=== PATIENT | male | born 1990 | race African-American/Black ===

== ENCOUNTER 2018-12-03 10:50 | Emergency (ER) | payer MEDICAID ==
[~2018-12-03] VITALS: Ht 188 cm; Wt 88.5 kg
[2018-12-03 12:15] VITALS: BP 133/84
== END 2018-12-03 12:31 | disposition home or self-care (01) ==
LOC: ER 11:22
DX: K59.00 Constipation, unspecified (principal); F31.9 Bipolar disorder, unspecified; F20.9 Schizophrenia, unspecified
CPT/HCPCS: 74018; 99283

== ENCOUNTER 2021-01-27 10:54 | Inpatient (IN) | payer MEDICAID, OTHER ==
[~2021-01-27] VITALS: Ht 180.3 cm; Wt 91.2 kg
[2021-01-27 11:48] LABS: BASOPHILS % 0.4 % (0.0-2.0); HEMATOCRIT. 42.3 % (42.0-52.0); HEMOGLOBIN. 13.8 g/dL (14.0-18.0); LYMPHOCYTES % 28.8 % (20.0-50.0); MEAN CORPUSCULAR HEMOGLOBIN 34.9 pg (28.0-32.0); MEAN CORPUSCULAR VOLUME 107.1 fL (80.0-94.0); MEAN PLATELET VOLUME 9.7 fl (7.4-10.4); MONOCYTES % 14.3 % (2.0-8.0); NEUTROPHILS % 53.5 % (40.0-76.0); PLATELET 86 x1000/uL (130-400); RED BLOOD CELL COUNT 3.95 mill/uL (4.7-6.1); RED CELL DISTRIBUTION WIDTH 13.2 % (11.6-14.6)
[2021-01-27 11:54] LABS: CHLORIDE 111 mEq/L (98-107)
[2021-01-27 12:33] LABS: INR 1.1; PROTHROMBIN TIME 11.4 sec (9.6-11.0)
[2021-01-27] MEDS ORDERED: DIPHENHYDRAMINE 50MG/ML VIAL IV PRN (17:15)
[2021-01-27] MEDS ORDERED: IPRATROPIUM/ALBUTEROL 0.5-3(2.5)MG/3ML NEB HHN PRN (17:15)
[2021-01-27] MEDS ORDERED: ONDANSETRON HCL 4MG/2ML INJ IV PRN (17:15)
[2021-01-27] MEDS ORDERED: CLONIDINE 0.1MG TABLET PO PRN (17:15)
[2021-01-27] MEDS: SODIUM CHLORIDE 0.9% 1,000 ML IV SCH (17:15)
[2021-01-27 20:02] LABS: CLARITY URINE CLEAR (CLEAR); COLOR URINE DARK YELLOW (YELLOW); KETONES URINE NEGATIVE (NEGATIVE); LEUKOCYTE ESTERASE URINE 1+ (NEGATIVE); NITRITE URINE NEGATIVE (NEGATIVE); OCCULT BLOOD URINE NEGATIVE (NEGATIVE); PROTEIN URINE NEGATIVE (NEGATIVE); SPECIFIC GRAVITY URINE 1.021 (1.005-1.030)
[2021-01-27 21:30] VITALS: BP 136/65
[2021-01-27 22:34] VITALS: BP 129/75
[2021-01-28] VITALS: BP 116/80
[2021-01-28] MEDS ORDERED: DIVA-75 PO (00:34)
[2021-01-28] MEDS ORDERED: OLAN10TA72 PO (00:34)
[2021-01-28] MEDS ORDERED: BENZ1TAB7 PO (00:34)
[2021-01-28] MEDS ORDERED: TRAZ-251 MT ×2 (00:34→00:38)
[2021-01-28] MEDS ORDERED: LITH300C3 PO (00:34)
[2021-01-28] MEDS ORDERED: CHLO50TA22 PO (00:34)
[2021-01-28] MEDS ORDERED: METO25TA6 PO (00:34)
[2021-01-28] MEDS ORDERED: TRAZ-251 PO (00:38)
[2021-01-28 04:00] VITALS: BP 113/79
[2021-01-28] MEDS: SODIUM CHLORIDE 0.9% 1,000 ML IV SCH ×2 (05:11→18:16)
[2021-01-28 06:25] LABS: BASOPHILS % 0.2 % (0.0-2.0); EOSINOPHILS % 3.2 % (0.0-5.0); HEMATOCRIT. 38.5 % (42.0-52.0); LYMPHOCYTES % 27.3 % (20.0-50.0); MEAN CORPUSCULAR HEMOGLOBIN 35.4 pg (28.0-32.0); MEAN CORPUSCULAR VOLUME 105.1 fL (80.0-94.0); MEAN PLATELET VOLUME 9.6 fl (7.4-10.4); MONOCYTES % 14.5 % (2.0-8.0); NEUTROPHILS % 54.8 % (40.0-76.0); PLATELET 90 x1000/uL (130-400); RED BLOOD CELL COUNT 3.66 mill/uL (4.7-6.1); RED CELL DISTRIBUTION WIDTH 12.5 % (11.6-14.6)
[2021-01-28 06:28] LABS: CHLORIDE 112 mEq/L (98-107)
[2021-01-28 06:41] LABS: LDL CHOLESTEROL 57 mg/dL (5-100)
[2021-01-28 06:43] LABS: HDL CHOLESTEROL 45 mg/dL (40-59)
[2021-01-28 08:00] VITALS: BP 155/113
[2021-01-28 12:00] VITALS: BP 122/80
[2021-01-28 13:07] LABS: TOTAL IRON BINDING CAPACITY 282 ug/dL (250-450)
[2021-01-28 13:29] LABS: FOLIC ACID (FOLATE) SERUM 5.9 ng/mL (>5.38)
[2021-01-28] MEDS ORDERED: OLANZAPINE 10MG TABLET PO SCH (14:00)
[2021-01-28] MEDS: METOPROLOL TARTRATE 25MG TABLET PO SCH (14:17)
[2021-01-28] MEDS: BENZTROPINE MESYLATE 1MG TABLET PO SCH ×2 (14:17→21:01)
[2021-01-28] MEDS: LITHIUM CARBONATE 150 MG CAPSULE PO SCH ×2 (14:17→21:01)
[2021-01-28] MEDS: DIVALPROEX SODIUM 500MG DR TABLET PO SCH ×2 (14:17→21:00)
[2021-01-28 16:00] VITALS: BP 138/90
[2021-01-28] MEDS ORDERED: NA PHOS,M-B/NA PHOS,DI-BA ENEMA 118ML PR NR ×2 (19:45→22:00)
[2021-01-28 20:00] VITALS: BP 132/77
[2021-01-28] MEDS: TRAZODONE HCL 50MG TABLET PO SCH (20:46)
[2021-01-29] VITALS: BP 144/90
[2021-01-29 04:00] VITALS: BP 106/66
[2021-01-29] MEDS: BENZTROPINE MESYLATE 1MG TABLET PO SCH ×3 (06:04→22:30)
[2021-01-29] MEDS: SODIUM CHLORIDE 0.9% 1,000 ML IV SCH ×2 (06:05→18:43)
[2021-01-29 06:52] LABS: BASOPHILS % 0.3 % (0.0-2.0); EOSINOPHILS % 2.7 % (0.0-5.0); HEMATOCRIT. 41.2 % (42.0-52.0); HEMOGLOBIN. 13.4 g/dL (14.0-18.0); LYMPHOCYTES % 24.5 % (20.0-50.0); MEAN CORPUSCULAR HEMOGLOBIN 34.6 pg (28.0-32.0); MEAN CORPUSCULAR VOLUME 106.1 fL (80.0-94.0); MEAN PLATELET VOLUME 9.1 fl (7.4-10.4); MONOCYTES % 12.3 % (2.0-8.0); NEUTROPHILS % 60.2 % (40.0-76.0); PLATELET 91 x1000/uL (130-400); RED BLOOD CELL COUNT 3.89 mill/uL (4.7-6.1); RED CELL DISTRIBUTION WIDTH 12.8 % (11.6-14.6)
[2021-01-29] MEDS ORDERED: NA PHOS,M-B/NA PHOS,DI-BA ENEMA 118ML PR SCH (07:00)
[2021-01-29 07:45] LABS: CHLORIDE 111 mEq/L (98-107)
[2021-01-29 08:00] VITALS: BP 119/66
[2021-01-29] MEDS: LITHIUM CARBONATE 150 MG CAPSULE PO SCH ×2 (08:56→22:30)
[2021-01-29] MEDS: DIVALPROEX SODIUM 500MG DR TABLET PO SCH ×2 (08:56→22:30)
[2021-01-29] MEDS: METOPROLOL TARTRATE 25MG TABLET PO SCH (08:57)
[2021-01-29] MEDS: OLANZAPINE 10MG TABLET PO SCH (08:57)
[2021-01-29 12:00] VITALS: BP 113/76
[2021-01-29 14:36] LABS: T4 FREE 1.31 ng/dL (0.76-1.46)
[2021-01-29 16:00] VITALS: BP 126/81
[2021-01-29 18:33] LABS: HEPATITIS B SURFACE ANTIGEN NEGATIVE
[2021-01-29 20:00] VITALS: BP 135/87
[2021-01-29] MEDS: TRAZODONE HCL 50MG TABLET PO SCH (22:30)
[2021-01-30] VITALS (7 sets, daily range): BP systolic 112–132; BP diastolic 72–92
[2021-01-30] MEDS: BENZTROPINE MESYLATE 1MG TABLET PO SCH ×3 (05:37→21:17)
[2021-01-30 06:11] LABS: HEMATOCRIT. 38.7 % (42.0-52.0); HEMOGLOBIN. 12.9 g/dL (14.0-18.0); MEAN CORPUSCULAR HEMOGLOBIN 34.8 pg (28.0-32.0); MEAN CORPUSCULAR VOLUME 103.9 fL (80.0-94.0); MEAN PLATELET VOLUME 9.8 fl (7.4-10.4); PLATELET 97 x1000/uL (130-400); RED BLOOD CELL COUNT 3.72 mill/uL (4.7-6.1); RED CELL DISTRIBUTION WIDTH 12.5 % (11.6-14.6)
[2021-01-30 06:30] LABS: CHLORIDE 110 mEq/L (98-107)
[2021-01-30] MEDS: SODIUM CHLORIDE 0.9% 1,000 ML IV SCH ×2 (07:21→21:17)
[2021-01-30] MEDS: OLANZAPINE 10MG TABLET PO SCH (09:00)
[2021-01-30] MEDS: METOPROLOL TARTRATE 25MG TABLET PO SCH (09:01)
[2021-01-30] MEDS: LITHIUM CARBONATE 150 MG CAPSULE PO SCH ×2 (09:01→21:17)
[2021-01-30] MEDS: DIVALPROEX SODIUM 500MG DR TABLET PO SCH ×2 (09:01→21:17)
[2021-01-30 17:25] LABS: PLATELET ESTIMATE DECREASED
[2021-01-30] MEDS ORDERED: NA PHOS,M-B/NA PHOS,DI-BA ENEMA 118ML PR NR (18:15)
[2021-01-30] MEDS: SORBITOL 70% SOLN 30ML PO NR ×2 (18:48→21:18)
[2021-01-30] MEDS ORDERED: SORBITOL 70% SOLN 30ML PO ONE (20:15)
[2021-01-30] MEDS: TRAZODONE HCL 50MG TABLET PO SCH (21:17)
[2021-01-31] VITALS: BP 120/84
[2021-01-31 04:00] VITALS: BP 118/72
[2021-01-31] MEDS: BENZTROPINE MESYLATE 1MG TABLET PO SCH ×3 (06:04→21:19)
[2021-01-31] MEDS ORDERED: SORBITOL 70% SOLN 30ML PO SCH (07:00)
[2021-01-31 08:00] VITALS: BP 125/83
[2021-01-31] MEDS: CYANOCOBALAMIN 1000MCG TABLET PO SCH (09:21)
[2021-01-31] MEDS: DIVALPROEX SODIUM 500MG DR TABLET PO SCH ×2 (09:21→21:19)
[2021-01-31] MEDS: METOPROLOL TARTRATE 25MG TABLET PO SCH (09:21)
[2021-01-31] MEDS: LITHIUM CARBONATE 150 MG CAPSULE PO SCH ×2 (09:22→21:26)
[2021-01-31] MEDS: OLANZAPINE 10MG TABLET PO SCH (09:22)
[2021-01-31] MEDS: SODIUM CHLORIDE 0.9% 1,000 ML IV SCH ×2 (09:45→21:35)
[2021-01-31] MEDS ORDERED: ACETAMINOPHEN 650MG/20.3ML UDC PO PRN (10:15)
[2021-01-31 12:00] VITALS: BP 110/71
[2021-01-31 16:00] VITALS: BP 116/68
[2021-01-31] MEDS ORDERED: NA PHOS,M-B/NA PHOS,DI-BA ENEMA 118ML PR NR ×2 (17:15→19:00)
[2021-01-31 20:00] VITALS: BP 113/70
[2021-01-31] MEDS: TRAZODONE HCL 50MG TABLET PO SCH (21:19)
[2021-02-01] VITALS: BP 108/70
[2021-02-01 04:00] VITALS: BP 114/75
[2021-02-01] MEDS: BENZTROPINE MESYLATE 1MG TABLET PO SCH ×3 (05:50→21:08)
[2021-02-01 08:00] VITALS: BP 116/71
[2021-02-01] MEDS: DIVALPROEX SODIUM 500MG DR TABLET PO SCH ×2 (10:07→21:08)
[2021-02-01] MEDS: METOPROLOL TARTRATE 25MG TABLET PO SCH (10:08)
[2021-02-01] MEDS: CYANOCOBALAMIN 1000MCG TABLET PO SCH (10:08)
[2021-02-01] MEDS: LITHIUM CARBONATE 150 MG CAPSULE PO SCH ×2 (10:08→21:08)
[2021-02-01] MEDS: OLANZAPINE 10MG TABLET PO SCH (10:08)
[2021-02-01] MEDS: SODIUM CHLORIDE 0.9% 1,000 ML IV SCH ×2 (10:09→21:21)
[2021-02-01 12:00] VITALS: BP 104/58
[2021-02-01] MEDS ORDERED: SORBITOL 70% SOLN 30ML PO SCH ×2 (13:00→19:00)
[2021-02-01 16:00] VITALS: BP 120/79
[2021-02-01 20:00] VITALS: BP 107/70
[2021-02-01] MEDS: TRAZODONE HCL 50MG TABLET PO SCH (21:08)
[2021-02-02] VITALS: BP 117/76
[2021-02-02 04:00] VITALS: BP 128/83
[2021-02-02] MEDS: BENZTROPINE MESYLATE 1MG TABLET PO SCH ×3 (05:41→21:28)
[2021-02-02 06:15] LABS: BASOPHILS % 0.3 % (0.0-2.0); EOSINOPHILS % 4.6 % (0.0-5.0); HEMATOCRIT. 36.7 % (42.0-52.0); HEMOGLOBIN. 12.2 g/dL (14.0-18.0); LYMPHOCYTES % 36.5 % (20.0-50.0); MEAN CORPUSCULAR HEMOGLOBIN 34.5 pg (28.0-32.0); MEAN CORPUSCULAR VOLUME 103.6 fL (80.0-94.0); MEAN PLATELET VOLUME 9.2 fl (7.4-10.4); MONOCYTES % 14.5 % (2.0-8.0); NEUTROPHILS % 44.1 % (40.0-76.0); PLATELET 102 x1000/uL (130-400); RED BLOOD CELL COUNT 3.54 mill/uL (4.7-6.1); RED CELL DISTRIBUTION WIDTH 12.7 % (11.6-14.6)
[2021-02-02 06:21] LABS: CHLORIDE 113 mEq/L (98-107)
[2021-02-02 08:00] VITALS: BP 128/72
[2021-02-02] MEDS: LITHIUM CARBONATE 150 MG CAPSULE PO SCH ×2 (09:47→21:28)
[2021-02-02] MEDS: DIVALPROEX SODIUM 500MG DR TABLET PO SCH ×2 (09:47→21:28)
[2021-02-02] MEDS: CYANOCOBALAMIN 1000MCG TABLET PO SCH (09:47)
[2021-02-02] MEDS: OLANZAPINE 10MG TABLET PO SCH (09:47)
[2021-02-02] MEDS: METOPROLOL TARTRATE 25MG TABLET PO SCH (09:48)
[2021-02-02] MEDS: SODIUM CHLORIDE 0.9% 1,000 ML IV SCH (11:02)
[2021-02-02 12:00] VITALS: BP 105/63
[2021-02-02 16:00] VITALS: BP 117/77
[2021-02-02] MEDS ORDERED: MINERAL OIL ENEMA 133ML PR NR (16:00)
[2021-02-02] MEDS: DOCUSATE SODIUM 250MG CAPSULE PO SCH (17:48)
[2021-02-02] MEDS: POLYETHYLENE GLYCOL 3350 (17GM) 1 DOSE PACK PO SCH (17:49)
[2021-02-02 20:00] VITALS: BP 126/83
[2021-02-02] MEDS: LACTULOSE 20G/30ML UDC PO SCH (21:28)
[2021-02-02] MEDS: TRAZODONE HCL 50MG TABLET PO SCH (21:28)
[2021-02-03] VITALS: BP 113/68
[2021-02-03] MEDS: SODIUM CHLORIDE 0.9% 1,000 ML IV SCH ×2 (02:51→11:04)
[2021-02-03 04:00] VITALS: BP 112/70
[2021-02-03] MEDS: BENZTROPINE MESYLATE 1MG TABLET PO SCH ×3 (05:05→21:55)
[2021-02-03] MEDS: LACTULOSE 20G/30ML UDC PO SCH ×3 (05:05→21:56)
[2021-02-03 08:00] VITALS: BP 109/68
[2021-02-03] MEDS: METOPROLOL TARTRATE 25MG TABLET PO SCH (09:00)
[2021-02-03] MEDS: DOCUSATE SODIUM 250MG CAPSULE PO SCH ×2 (09:10→17:17)
[2021-02-03] MEDS: LITHIUM CARBONATE 150 MG CAPSULE PO SCH ×2 (09:10→21:56)
[2021-02-03] MEDS: OLANZAPINE 10MG TABLET PO SCH (09:10)
[2021-02-03] MEDS: DIVALPROEX SODIUM 500MG DR TABLET PO SCH ×2 (09:10→21:55)
[2021-02-03] MEDS: POLYETHYLENE GLYCOL 3350 (17GM) 1 DOSE PACK PO SCH (09:11)
[2021-02-03] MEDS: CYANOCOBALAMIN 1000MCG TABLET PO SCH (09:11)
[2021-02-03 12:00] VITALS: BP 104/70
[2021-02-03] MEDS ORDERED: DOCU250C14 PO (13:10)
[2021-02-03] MEDS ORDERED: POLY17PO3 PO (13:10)
[2021-02-03] MEDS ORDERED: OLAN10TA72 PO (13:10)
[2021-02-03] MEDS ORDERED: LACT10SO7 PO (13:10)
[2021-02-03 16:00] VITALS: BP 116/77
[2021-02-03 20:00] VITALS: BP 117/81
[2021-02-03] MEDS: TRAZODONE HCL 50MG TABLET PO SCH (21:55)
[2021-02-04] VITALS: BP 107/61
[2021-02-04] MEDS: SODIUM CHLORIDE 0.9% 1,000 ML IV SCH (00:15)
[2021-02-04 04:00] VITALS: BP 107/68
[2021-02-04 04:59] VITALS: BP 107/61
[2021-02-04] MEDS: BENZTROPINE MESYLATE 1MG TABLET PO SCH (05:34)
[2021-02-04] MEDS: LACTULOSE 20G/30ML UDC PO SCH (05:34)
[2021-02-04 08:00] VITALS: BP 114/65
== END 2021-02-04 10:37 | disposition home or self-care (01) | DRG 247 ==
LOC: ER 11:48 → 7EST 15:14 → ENRESERV 20:26 → 6EST 01-30 13:05
PROVIDERS: ADMIT Internal Medicine; ATTEND Internal Medicine
DX: K56.41 Fecal impaction (principal); K59.39 Other megacolon; D69.3 Immune thrombocytopenic purpura; E88.09 Other disorders of plasma-protein metabolism, not elsewhere classified; D69.6 Thrombocytopenia, unspecified; D53.9 Nutritional anemia, unspecified; F20.9 Schizophrenia, unspecified; F31.60 Bipolar disorder, current episode mixed, unspecified; F79 Unspecified intellectual disabilities; K30 Functional dyspepsia; Z20.822 Contact with and (suspected) exposure to COVID-19; Z79.899 Other long term (current) drug therapy; Z91.81 History of falling
CPT/HCPCS: 36415; 74018; 74176; 80048; 80053; 80061; 80178; 81003; 82607; 82728; 82746; 83540; 83550; 84439; 84443; 84481; 85025; 86038; 86705; 86709; 86803; 87340; 87426; 87901; 93005; 93970; 99285; J7040

== ENCOUNTER 2025-01-11 13:33 | Inpatient (IN) | payer MEDICARE, MEDICAID ==
[~2025-01-11] VITALS: Ht 370.8 cm; Wt 80.3 kg
[~2025-01-11 13:33] MED LIST: BENZ1TAB78 PO; CHLO50TA50 PO; DIVA-131 PO; DOCU250C14 PO; LACT10SO7 PO; LITH300C3 PO; METO25TA6 PO; OLAN10TA72 PO; POLY17PO3 PO; TRAZ-251 MT; TRAZ-251 PO
[2025-01-11 13:40] VITALS: O2SAT 100
[2025-01-11 17:56] LABS: BASOPHILS % 0.3 % (0.0-2.0); EOSINOPHILS % 4.4 % (0.0-5.0); HEMATOCRIT. 44.1 % (42.0-52.0); HEMOGLOBIN. 14.6 g/dL (14.0-18.0); LYMPHOCYTES % 28.4 % (20.0-50.0); MEAN PLATELET VOLUME 9.4 fl (7.4-10.4); MONOCYTES % 10.0 % (2.0-8.0); NEUTROPHILS % 56.9 % (40.0-76.0); PLATELET 96 x1000/uL (130-400); RED BLOOD CELL COUNT 4.17 mill/uL (4.7-6.1); RED CELL DISTRIBUTION WIDTH 13.0 % (11.6-14.6)
[2025-01-11 18:19] LABS: CREATININE 1.1 mg/dL (0.6-1.3); UREA NITROGEN BLOOD 6 mg/dL (9-23)
[2025-01-11 18:21] LABS: ASPARTATE AMINOTRANSFERASE 17 IU/L (<34)
[2025-01-11 18:22] LABS: BILIRUBIN DIRECT 0.3 mg/dL (<=3.0); BILIRUBIN TOTAL 0.6 mg/dL (0.1-1.0); PROTEIN TOTAL 7.2 g/dL (6.0-8.3)
[2025-01-11] MEDS ORDERED: ONDANSETRON HCL 4MG/2ML INJ IV PRN (23:15)
[2025-01-11] MEDS ORDERED: MINERAL OIL ENEMA 133ML PR NR (23:15)
[2025-01-11] MEDS ORDERED: ACETAMINOPHEN 325MG TABLET PO PRN (23:15)
[2025-01-11] MEDS ORDERED: POTASSIUM CHLORIDE 20MEQ TABLET SR PO PRN (23:15)
[2025-01-11] MEDS ORDERED: MAGNESIUM/ALUMINUM HYDROXIDE/SIMETHICONE 30ML UDC PO PRN (23:15)
[2025-01-11] MEDS ORDERED: CLONIDINE 0.1MG TABLET PO PRN (23:15)
[2025-01-11] MEDS ORDERED: ENOXAPARIN 40MG/0.4ML SYR SUBCUT SCH (23:15)
[2025-01-11] MEDS ORDERED: IPRATROPIUM/ALBUTEROL 0.5-3(2.5)MG/3ML NEB HHN PRN (23:21)
[2025-01-11] MEDS ORDERED: HYDROCODONE/ACETAMINOPHEN 5/325MG TABLET PO PRN (23:21)
[2025-01-12 01:20] VITALS: BP 125/83; PULSE 72; RESP 19; TEMP 36.5; O2SAT 99
[2025-01-12 01:40] VITALS: BP 125/83; PULSE 72; RESP 19; TEMP 36.5292
[2025-01-12 08:00] VITALS: BP 114/67; PULSE 63; RESP 20; TEMP 36.3; O2SAT 99
[2025-01-12] MEDS: DOCUSATE SODIUM 100MG CAPSULE PO SCH (09:09)
[2025-01-12] MEDS ORDERED: LITH300C3 MT (09:39)
[2025-01-12] MEDS ORDERED: DIVA500T51 PO (09:42)
[2025-01-12] MEDS ORDERED: BENZ1TAB78 MT (09:46)
[2025-01-12] MEDS ORDERED: OLAN10TA72 PO (09:48)
[2025-01-12] MEDS ORDERED: LOPHC2 PO (09:49)
[2025-01-12] MEDS ORDERED: CHLO50TA50 PO (09:50)
[2025-01-12] MEDS ORDERED: NALOXONE HCL 0.4MG/ML VIAL IV PRN (10:15)
[2025-01-12] MEDS ORDERED: *PATIENT'S OWN MEDICATION STORAGE XX SCH (10:15)
[2025-01-12] MEDS: BISACODYL 10MG SUPP PR NR (11:31)
[2025-01-12 12:00] VITALS: BP 108/62; PULSE 74; RESP 17; TEMP 36; O2SAT 100
[2025-01-12] MEDS: POLYETHYLENE GLYCOL 3350 (17GM) 1 DOSE PACK PO SCH (19:20)
[2025-01-12 20:00] VITALS: BP 120/72; PULSE 92; RESP 18; TEMP 36.4; O2SAT 98
[2025-01-12] MEDS: BENZTROPINE MESYLATE 1MG TABLET PO SCH (20:58)
[2025-01-12] MEDS: SENNOSIDES 8.6MG TABLET PO SCH (20:58)
[2025-01-12] MEDS: OLANZAPINE 10MG TABLET PO SCH (20:58)
[2025-01-13] VITALS: BP 123/80; PULSE 102; RESP 18; TEMP 36.1; O2SAT 96
[2025-01-13 04:00] VITALS: BP 109/73; PULSE 102; RESP 18; TEMP 36.5; O2SAT 99
[2025-01-13 07:33] LABS: CREATININE 0.9 mg/dL (0.6-1.3)
[2025-01-13 07:34] LABS: HEMATOCRIT. 45.2 % (42.0-52.0); HEMOGLOBIN. 14.9 g/dL (14.0-18.0); MEAN PLATELET VOLUME 10.3 fl (7.4-10.4); PLATELET 97 x1000/uL (130-400); RED BLOOD CELL COUNT 4.38 mill/uL (4.7-6.1); RED CELL DISTRIBUTION WIDTH 13.1 % (11.6-14.6)
[2025-01-13 07:34] LABS: UREA NITROGEN BLOOD 8 mg/dL (9-23)
[2025-01-13 07:35] LABS: ASPARTATE AMINOTRANSFERASE 24 IU/L (<34); BILIRUBIN DIRECT 0.4 mg/dL (<=3.0)
[2025-01-13 07:36] LABS: BILIRUBIN TOTAL 0.9 mg/dL (0.1-1.0); PHOSPHORUS 3.9 mg/dL (2.5-4.9); PROTEIN TOTAL 7.1 g/dL (6.0-8.3)
[2025-01-13 08:00] VITALS: BP 110/70; PULSE 100; RESP 18; TEMP 36.6; O2SAT 98
[2025-01-13] MEDS: DIVALPROEX SODIUM 500MG ER TABLET PO SCH (08:47)
[2025-01-13] MEDS: BISACODYL 10MG SUPP PR SCH (08:47)
[2025-01-13 12:00] VITALS: BP 109/71; PULSE 98; RESP 17; TEMP 36.4; O2SAT 98
[2025-01-13 12:31] LABS: LYMPHOCYTES % MANUAL 15.0 % (20.0-50.0); MONOCYTES % MANUAL 8.0 % (2.0-8.0); NEUTROPHILS % MANUAL 77.0 % (45.0-75.0); PLATELET ESTIMATE SLIGHTLY DECREASED
[2025-01-13 16:00] VITALS: BP 107/71; PULSE 98; RESP 19; TEMP 36.6; O2SAT 98
[2025-01-13] MEDS ORDERED: DIATR MEGLU/DIATRIZOATE SOLN 30ML PO SCH (16:00)
[2025-01-13 20:00] VITALS: BP 127/97; PULSE 103; RESP 18; TEMP 36.3; O2SAT 96
[2025-01-14] VITALS: BP 131/88; PULSE 92; RESP 18; TEMP 36.3; O2SAT 97
[2025-01-14 04:00] VITALS: BP 113/82; PULSE 90; RESP 18; TEMP 36.3; O2SAT 99
[2025-01-14 08:00] VITALS: BP 113/73; PULSE 86; RESP 17; TEMP 36.1; O2SAT 100
[2025-01-14] MEDS: DIATR MEGLU/DIATRIZOATE SOLN 30ML PO SCH (11:28)
[2025-01-14 12:00] VITALS: BP 112/76; PULSE 90; RESP 17; TEMP 36.2; O2SAT 98
[2025-01-14] MEDS: IOHEXOL-300 100 ML BOTTLE ONE (14:40)
[2025-01-14 16:00] VITALS: BP 114/85; PULSE 100; RESP 17; TEMP 36.4; O2SAT 99
[2025-01-14 20:00] VITALS: BP 132/92; PULSE 120; RESP 18; TEMP 35.6; O2SAT 99
[2025-01-15] VITALS: BP 127/83; PULSE 99; RESP 18; TEMP 36.7; O2SAT 100
[2025-01-15 04:00] VITALS: BP 125/85; PULSE 100; RESP 18; TEMP 36.8; O2SAT 99
[2025-01-15 08:00] VITALS: BP 121/81; PULSE 86; RESP 18; TEMP 36.4; O2SAT 98
[2025-01-15 12:00] VITALS: BP 132/92; PULSE 86; RESP 18; TEMP 36.4; O2SAT 100
[2025-01-15 16:00] VITALS: BP 103/63; PULSE 100; RESP 18; TEMP 36.6; O2SAT 96
[2025-01-15 18:25] LABS: CREATININE 0.9 mg/dL (0.6-1.3); UREA NITROGEN BLOOD 10 mg/dL (9-23)
[2025-01-15 18:49] LABS: BASOPHILS % 0.3 % (0.0-2.0); EOSINOPHILS % 3.2 % (0.0-5.0); HEMATOCRIT. 44.7 % (42.0-52.0); HEMOGLOBIN. 14.6 g/dL (14.0-18.0); LYMPHOCYTES % 26.7 % (20.0-50.0); MEAN PLATELET VOLUME 9.2 fl (7.4-10.4); MONOCYTES % 14.7 % (2.0-8.0); NEUTROPHILS % 55.1 % (40.0-76.0); PLATELET 124 x1000/uL (130-400); RED BLOOD CELL COUNT 4.31 mill/uL (4.7-6.1); RED CELL DISTRIBUTION WIDTH 13.0 % (11.6-14.6)
[2025-01-15 20:00] VITALS: BP 122/83; PULSE 105; RESP 19; TEMP 36.5; O2SAT 96
[2025-01-16] VITALS: BP 118/76; PULSE 78; RESP 18; TEMP 36.3; O2SAT 98
[2025-01-16 04:00] VITALS: BP 123/76; PULSE 73; RESP 18; TEMP 36.3; O2SAT 96
[2025-01-16 12:00] VITALS: BP 99/54; PULSE 91; RESP 18; TEMP 36.3; O2SAT 100
[2025-01-16 16:00] VITALS: BP 117/75; PULSE 86; RESP 18; TEMP 36.3; O2SAT 99
[2025-01-16 20:00] VITALS: BP 137/89; PULSE 110; RESP 18; TEMP 36.4; O2SAT 100
[2025-01-17] VITALS: BP 120/83; PULSE 70; RESP 18; TEMP 36.4; O2SAT 95
[2025-01-17 08:00] VITALS: BP 121/77; PULSE 96; RESP 18; TEMP 36.5; O2SAT 97
[2025-01-17 12:00] VITALS: BP 120/75; PULSE 88; RESP 18; TEMP 36.3; O2SAT 99
[2025-01-17 16:00] VITALS: BP 102/70; PULSE 78; RESP 18; TEMP 36.4; O2SAT 98
[2025-01-17 20:00] VITALS: BP 121/67; PULSE 86; RESP 18; TEMP 36.6; O2SAT 98
[2025-01-18] VITALS: BP 117/87; PULSE 93; RESP 18; TEMP 36.4; O2SAT 96
[2025-01-18 08:00] VITALS: BP 100/75; PULSE 76; RESP 17; TEMP 36.9; O2SAT 99
[2025-01-18 12:00] VITALS: BP 108/65; PULSE 85; RESP 18; TEMP 36.5; O2SAT 99
[2025-01-18 15:22] VITALS: BP 108/65; PULSE 85; RESP 18; TEMP 97.7
[2025-01-18 16:00] VITALS: BP 107/53; PULSE 77; RESP 17; TEMP 35.9; O2SAT 100
== END 2025-01-18 16:11 | disposition home or self-care (01) | DRG 389 ==
LOC: ER 13:46 → EDBEDREQ 22:55 → EDBEDREQTM 22:55 → ENRESERV 23:18 → 7EST 01-12 00:49
PROVIDERS: ADMIT Family Medicine Adult Medicine; ATTEND Family Medicine Adult Medicine
DX: K56.41 Fecal impaction (principal); F84.0 Autistic disorder; K40.20 Bilateral inguinal hernia, without obstruction or gangrene, not specified as recurrent; F20.9 Schizophrenia, unspecified; F31.9 Bipolar disorder, unspecified
CPT/HCPCS: 36415; 74176; 74177; 80048; 80076; 83735; 84100; 85025; 93970; 99285; A4606; Q9963; Q9967